=== PATIENT | male | born 1955 | race Hispanic/Latino ===

== ENCOUNTER 2022-04-08 12:33 | Emergency (ER) | payer OTHER ==
[~2022-04-08] VITALS: Ht 167.6 cm; Wt 76.2 kg
[~2022-04-08 12:33] MED LIST: IBUP-2077 PO; LISI1TAB53 PO
[2022-04-08 12:43] VITALS: BP 167/110
== END 2022-04-08 15:08 | disposition left against medical advice (07) ==
LOC: EDH 12:33
DX: M25.512 Pain in left shoulder (principal); Z53.21 Procedure and treatment not carried out due to patient leaving prior to being seen by health care provider
CPT/HCPCS: 73030

== ENCOUNTER 2022-09-03 18:03 | Emergency (ER) | payer OTHER ==
[~2022-09-03] VITALS: Ht 167.6 cm; Wt 76.2 kg
[2022-09-03 18:34] VITALS: BP 105/73
[2022-09-03] MEDS ORDERED: LACTATED RINGERS 1000ML 1,000 ML IV ONE (19:00)
[2022-09-03] MEDS ORDERED: PANTOPRAZOLE 40 MG/VIAL IVP ONE (19:00)
[2022-09-03 19:17] LABS: BASOPHILS % (AUTO) 0.3 % (0.0-5.0); EOSINOPHILS % (AUTO) 0.9 % (0.0-8.0); HEMATOCRIT 43.3 % (42-54); LYMPHOCYTES % (AUTO) 10.1 % (21.0-51.0); MEAN CORPUSCULAR HEMOGLOBIN 30.8 pg (27.0-33.0); MEAN CORPUSCULAR HGB CONC 34.2 g/dL (32.0-36.0); MONOCYTES % (AUTO) 4.5 % (3.0-13.0); NEUTROPHILS % (AUTO) 83.7 % (40.0-77.0); PLATELET COUNT (AUTO) 245 K/uL (130-400); RED BLOOD CELL COUNT(AUTO) 4.81 MIL/uL (4.50-6.20); RED CELL DISTRIBUTION WIDTH 12.9 % (11.0-15.5); WHITE BLOOD COUNT (AUTO) 7.6 K/uL (4.8-10.8)
[2022-09-03 19:25] LABS: CREATININE 1.4 mg/dL (0.5-1.5); POTASSIUM 4.1 mmol/L (3.5-5.1)
[2022-09-03 19:29] LABS: ALBUMIN 4.3 g/dL (3.5-5.0); TOTAL PROTEIN, SERUM 8.6 g/dL (6.0-8.3)
[2022-09-03 20:01] LABS: APPEARANCE,URINE CLEAR (CLEAR); BILIRUBIN,URINE NEGATIVE (NEGATIVE); COLOR,URINE LIGHT-YELLOW (YELLOW); GLUCOSE, URINE (UA) NEGATIVE (NEGATIVE); KETONES,URINE NEGATIVE (NEGATIVE); LEUKOCYTE ESTERASE ,URINE NEGATIVE Leu/uL (NEGATIVE); NITRATE,URINE NEGATIVE (NEGATIVE); OCCULT BLOOD,URINE NEGATIVE (NEGATIVE); PROTEIN,URINE NEGATIVE (NEGATIVE); UROBILINOGEN,URINE 0.2 mg/dL (0.2-1.0)
[2022-09-03 20:05] LABS: BACTERIA,URINE FEW /HPF (None Seen); MUCUS,URINE RARE LPF (None Seen); RBC,URINE 0-1 /HPF (0-1)
[2022-09-03] MEDS ORDERED: FAMO-136 PO (20:47)
[2022-09-03] MEDS ORDERED: ONDA22I PO (20:47)
== END 2022-09-03 21:18 | disposition home or self-care (01) ==
LOC: EDH 18:03
DX: K21.9 Gastro-esophageal reflux disease without esophagitis (principal); R19.7 Diarrhea, unspecified; R11.10 Vomiting, unspecified; I10 Essential (primary) hypertension; Z79.899 Other long term (current) drug therapy; Z85.038 Personal history of other malignant neoplasm of large intestine
CPT/HCPCS: 99284; 96374; 96361; 82150; 82550; 84484; 80053; 83690; 85025; 81001; 36415; 93005; J7120; C9113

== ENCOUNTER 2022-10-03 21:54 | Inpatient (IN) | payer OTHER ==
[~2022-10-03] VITALS: Ht 165.1 cm; Wt 71.8 kg
[~2022-10-03 21:54] MED LIST changes: +ALTEPLASE 100 MG VIAL IVP ONE; +FAMO-136 PO; +HEPARIN 10,000 UNIT/10ML (1,000 UNIT/ML) VIAL IV ONE; +ONDA22I PO
[2022-10-03] MEDS ORDERED: NITROGLYCERIN 50MG/D5W 250ML 1 BOT ONE (22:04)
[2022-10-03] MEDS ORDERED: CLOPIDOGREL 300MG TAB ONE (22:21)
[2022-10-03] MEDS ORDERED: NITROGLYCERIN 50MG/D5W 250ML 1 BOT IV PRN (22:30)
[2022-10-03 22:35] LABS: BASOPHILS % (AUTO) 0.6 % (0.0-5.0); EOSINOPHILS % (AUTO) 3.3 % (0.0-8.0); HEMATOCRIT 35.7 % (42-54); LYMPHOCYTES % (AUTO) 41.5 % (21.0-51.0); MEAN CORPUSCULAR HGB CONC 34.7 g/dL (32.0-36.0); MEAN CORPUSCULAR VOLUME 89.3 fL (79-99); MONOCYTES % (AUTO) 10.8 % (3.0-13.0); NEUTROPHILS % (AUTO) 43.1 % (40.0-77.0); PLATELET COUNT (AUTO) 235 K/uL (130-400); RED CELL DISTRIBUTION WIDTH 12.9 % (11.0-15.5); WHITE BLOOD COUNT (AUTO) 6.7 K/uL (4.8-10.8)
[2022-10-03 22:45] LABS: CREATININE 1.4 mg/dL (0.5-1.5); POTASSIUM 3.3 mmol/L (3.5-5.1)
[2022-10-03 22:47] LABS: INR 0.93 (0.85-1.15); PROTHROMBIN TIME 10.7 SEC (9.6-11.6)
[2022-10-03 22:48] LABS: PARTIAL THROMBOPLASTIN TIME 24.9 SEC (26.3-35.5)
[2022-10-03 22:49] LABS: ALBUMIN 3.6 g/dL (3.5-5.0); MAGNESIUM 1.7 mg/dL (1.80-2.40)
[2022-10-03] MEDS ORDERED: CLOPIDOGREL 300MG TAB PO ONE (23:00)
[2022-10-03] MEDS ORDERED: ALTEPLASE 100MG 1 VIAL IV PRN (23:00)
[2022-10-03 23:05] LABS: B-TYPE NATRIURETIC PEPTIDE 22 pg/mL (0-100)
[2022-10-03] MEDS ORDERED: ONDANSETRON 4MG INJ IVP PRN (23:30)
[2022-10-03] MEDS ORDERED: ACETAMINOPHEN 325 MG TAB PO PRN (23:30)
[2022-10-04] VITALS (75 sets, daily range): BP systolic 111–151; BP diastolic 64–98; PULSE 56–91; RESP 13–47; O2SAT 97–100
[2022-10-04] MEDS ORDERED: HEPARIN 25,000 UNITS/250ML D5W 250 ML IV SCH (01:00)
[2022-10-04] MEDS ORDERED: THIAMINE HCL 100 MG/ML 2ML VIAL IVP ONE (03:30)
[2022-10-04] MEDS ORDERED: CHLORDIAZEPOXIDE HCL 25 MG CAP PO PRN (03:30)
[2022-10-04 04:14] LABS: BASOPHILS % (AUTO) 0.7 % (0.0-5.0); EOSINOPHILS % (AUTO) 2.8 % (0.0-8.0); HEMATOCRIT 35.5 % (42-54); LYMPHOCYTES % (AUTO) 24.2 % (21.0-51.0); MEAN CORPUSCULAR HEMOGLOBIN 30.9 pg (27.0-33.0); MEAN CORPUSCULAR HGB CONC 34.4 g/dL (32.0-36.0); MEAN CORPUSCULAR VOLUME 89.9 fL (79-99); MONOCYTES % (AUTO) 11.8 % (3.0-13.0); NEUTROPHILS % (AUTO) 59.6 % (40.0-77.0); PLATELET COUNT (AUTO) 206 K/uL (130-400); RED BLOOD CELL COUNT(AUTO) 3.95 MIL/uL (4.50-6.20); RED CELL DISTRIBUTION WIDTH 13.1 % (11.0-15.5); WHITE BLOOD COUNT (AUTO) 5.8 K/uL (4.8-10.8)
[2022-10-04 04:37] LABS: MAGNESIUM 1.7 mg/dL (1.80-2.40); POTASSIUM 3.3 mmol/L (3.5-5.1)
[2022-10-04 04:42] LABS: HEMOGLOBIN A1C 5.7 % (4.0-6.0)
[2022-10-04] MEDS ORDERED: POTASSIUM CHLORIDE 10MEQ/100ML 100 ML IV PRN (07:00)
[2022-10-04] MEDS: ASPIRIN 81 MG EC TAB PO SCH (10:01)
[2022-10-04] MEDS: MULTIVITS,STRESS FORMULA/ZINC 1 TABLET PO SCH (10:33)
[2022-10-04] MEDS ORDERED: THIAMINE HCL 300 MG in 0.9%NACL 100ML 100 ML IVPB ONE (11:30)
[2022-10-04 14:31] LABS: BASOPHILS % (AUTO) 0.6 % (0.0-5.0); EOSINOPHILS % (AUTO) 2.8 % (0.0-8.0); HEMATOCRIT 36.2 % (42-54); MEAN CORPUSCULAR HEMOGLOBIN 31.1 pg (27.0-33.0); MEAN CORPUSCULAR HGB CONC 34.3 g/dL (32.0-36.0); MEAN CORPUSCULAR VOLUME 90.7 fL (79-99); PLATELET COUNT (AUTO) 198 K/uL (130-400); RED BLOOD CELL COUNT(AUTO) 3.99 MIL/uL (4.50-6.20); RED CELL DISTRIBUTION WIDTH 13.1 % (11.0-15.5); WHITE BLOOD COUNT (AUTO) 5.1 K/uL (4.8-10.8)
[2022-10-04 14:45] LABS: INR 1.45 (0.85-1.15); PROTHROMBIN TIME 16.4 SEC (9.6-11.6)
[2022-10-04] MEDS ORDERED: PEG 3350/NA SULF,BICARB,CL/KCL 4000 ML SOLN PO ONE (20:00)
[2022-10-04 21:31] LABS: HEMATOCRIT 38.7 % (42-54)
[2022-10-05] VITALS (17 sets, daily range): BP systolic 99–148; BP diastolic 60–95; PULSE 54–114; RESP 15–51; O2SAT 97
[2022-10-05 05:42] LABS: HEMATOCRIT 34.8 % (42-54)
[2022-10-05] MEDS ORDERED: PROPOFOL 10 MG/ML 20ML VIAL IV ONE (06:59)
[2022-10-05] MEDS ORDERED: LIDOCAINE PF 100MG/5ML (2%) SYRINGE 5ML ONE (07:00)
[2022-10-05] MEDS ORDERED: MIDAZOLAM HCL 1 MG/ML 2ML VIAL ONE (07:00)
[2022-10-05] MEDS ORDERED: EPHEDRINE SULFATE 50 MG/ML AMPULE ONE (07:10)
[2022-10-05] MEDS ORDERED: 0.9%NACL 1000ML 1,000 ML IV ONE (07:49)
[2022-10-05 08:06] LABS: POTASSIUM 3.2 mmol/L (3.5-5.1)
[2022-10-05 08:41] LABS: HEMATOCRIT 34.7 % (42-54); MEAN CORPUSCULAR HEMOGLOBIN 31.1 pg (27.0-33.0); MEAN CORPUSCULAR HGB CONC 33.7 g/dL (32.0-36.0); MEAN CORPUSCULAR VOLUME 92.3 fL (79-99); RED BLOOD CELL COUNT(AUTO) 3.76 MIL/uL (4.50-6.20); WHITE BLOOD COUNT (AUTO) 4.8 K/uL (4.8-10.8)
[2022-10-05] MEDS: THIAMINE HCL 100 MG TABLET PO SCH (10:09)
[2022-10-05] MEDS: ASPIRIN 81 MG EC TAB PO SCH (10:09)
[2022-10-05] MEDS: MULTIVITS,STRESS FORMULA/ZINC 1 TABLET PO SCH (10:09)
[2022-10-05] MEDS ORDERED: METOPROLOL TARTRATE 25 MG TAB ONE (10:10)
[2022-10-05] MEDS: METOPROLOL TARTRATE 25 MG TAB PO SCH ×2 (10:14→20:03)
[2022-10-05] MEDS ORDERED: POTASSIUM CHLORIDE 20MEQ/100ML 100 ML IV PRN (10:30)
[2022-10-05] MEDS ORDERED: POTASSIUM CHLORIDE 10% ELIXIR 20 MEQ/15 ML UDCUP PO PRN (10:30)
[2022-10-05] MEDS: KCL 20 MEQ ERTAB PO PRN ×2 (11:56→13:56)
[2022-10-05 16:10] LABS: HEMATOCRIT 34.2 % (42-54)
[2022-10-06] VITALS: BP 140/79; PULSE 59; RESP 21
[2022-10-06 03:45] VITALS: BP 148/83; PULSE 64; RESP 20
[2022-10-06 08:00] VITALS: BP 131/82; PULSE 67; RESP 16
[2022-10-06] MEDS: ASPIRIN 81 MG EC TAB PO SCH (09:16)
[2022-10-06] MEDS: METOPROLOL TARTRATE 25 MG TAB PO SCH ×2 (09:16→20:15)
[2022-10-06] MEDS: MULTIVITS,STRESS FORMULA/ZINC 1 TABLET PO SCH (09:16)
[2022-10-06] MEDS: THIAMINE HCL 100 MG TABLET PO SCH (09:16)
[2022-10-06] MEDS: CLOPIDOGREL 75MG TAB PO SCH (09:17)
[2022-10-06 12:00] VITALS: BP 107/75; PULSE 67; RESP 16
[2022-10-06 12:51] LABS: APPEARANCE,URINE CLEAR (CLEAR); BILIRUBIN,URINE NEGATIVE (NEGATIVE); COLOR,URINE YELLOW (YELLOW); GLUCOSE, URINE (UA) NEGATIVE (NEGATIVE); KETONES,URINE NEGATIVE (NEGATIVE); LEUKOCYTE ESTERASE ,URINE NEGATIVE Leu/uL (NEGATIVE); NITRATE,URINE NEGATIVE (NEGATIVE); OCCULT BLOOD,URINE NEGATIVE (NEGATIVE); PROTEIN,URINE NEGATIVE (NEGATIVE)
[2022-10-06 16:00] VITALS: BP_SYST 107; BP_SYST 136; BP_DIAS 75; PULSE 65; PULSE 67; RESP 16
[2022-10-06 20:00] VITALS: BP 161/88; PULSE 64; RESP 16
[2022-10-06] MEDS: ATORVASTATIN 40 MG TABLET PO SCH (20:15)
[2022-10-07] VITALS (16 sets, daily range): BP systolic 118–169; BP diastolic 67–98; PULSE 50–88; RESP 16–19; O2SAT 100
[2022-10-07 03:33] LABS: HEMATOCRIT 32.2 % (42-54); MEAN CORPUSCULAR HEMOGLOBIN 30.9 pg (27.0-33.0); MEAN CORPUSCULAR HGB CONC 34.2 g/dL (32.0-36.0); MEAN CORPUSCULAR VOLUME 90.4 fL (79-99); RED BLOOD CELL COUNT(AUTO) 3.56 MIL/uL (4.50-6.20); RED CELL DISTRIBUTION WIDTH 12.3 % (11.0-15.5); WHITE BLOOD COUNT (AUTO) 4.8 K/uL (4.8-10.8)
[2022-10-07 03:42] LABS: CREATININE 0.9 mg/dL (0.5-1.5); MAGNESIUM 1.6 mg/dL (1.80-2.40); POTASSIUM 3.2 mmol/L (3.5-5.1)
[2022-10-07 03:47] LABS: INR 0.94 (0.85-1.15); PROTHROMBIN TIME 10.9 SEC (9.6-11.6)
[2022-10-07 03:48] LABS: PARTIAL THROMBOPLASTIN TIME 25.9 SEC (26.3-35.5)
[2022-10-07] MEDS ORDERED: 0.9% NACL 500ML IV.SOLN 500 ML IV SCH (05:00)
[2022-10-07] MEDS: CLOPIDOGREL 75MG TAB PO SCH (08:48)
[2022-10-07] MEDS: MULTIVITS,STRESS FORMULA/ZINC 1 TABLET PO SCH (08:48)
[2022-10-07] MEDS: ASPIRIN 81 MG EC TAB PO SCH (08:48)
[2022-10-07] MEDS: THIAMINE HCL 100 MG TABLET PO SCH (08:48)
[2022-10-07] MEDS: METOPROLOL TARTRATE 25 MG TAB PO SCH ×2 (08:49→21:54)
[2022-10-07] MEDS: MAGNESIUM 2GM PREMIX 50ML 50 ML IV SCH (08:49)
[2022-10-07] MEDS ORDERED: FENTANYL CITRATE PF 50 MCG/1 ML 2ML VIAL ONE (13:08)
[2022-10-07] MEDS ORDERED: LIDOCAINE HCL 400MG/20ML VIAL ONE (13:08)
[2022-10-07] MEDS ORDERED: HEPARIN 10,000 UNIT/10ML (1,000 UNIT/ML) VIAL ONE (13:09)
[2022-10-07] MEDS ORDERED: IOHEXOL-350 50ML VIAL IV ONE (13:09)
[2022-10-07] MEDS ORDERED: NITROGLYCERIN 50MG VIAL ONE (13:09)
[2022-10-07] MEDS ORDERED: MIDAZOLAM HCL 1 MG/ML 2ML VIAL ONE (13:09)
[2022-10-07] MEDS ORDERED: IOHEXOL-350 75 ML VIAL IV ONE (13:09)
[2022-10-07] MEDS ORDERED: NICARDIPINE 25MG INJ IV ONE (13:39)
[2022-10-07] MEDS ORDERED: DEXTROSE 50%-WATER 50 ML DISP.SYRIN IV PRN (15:00)
[2022-10-07] MEDS ORDERED: GLUCAGON 1MG KIT 1 MG ML IM PRN (15:00)
[2022-10-07] MEDS: ATORVASTATIN 40 MG TABLET PO SCH (21:54)
[2022-10-07] MEDS: KCL 20 MEQ ERTAB PO PRN (22:01)
[2022-10-08 03:45] LABS: ABG BASE EXCESS -0.1 mmol/L (-2.0-3.0); ABG HCO3 23.9 mmol/L (21.0-28.0); ABG OXYGEN SATURATION 95.7 % (95.0-99.0); ABG PCO2 37 mmHg (35-48)
[2022-10-08 05:00] VITALS: BP 146/77; PULSE 55; RESP 19
[2022-10-08 05:49] LABS: HEMATOCRIT 33.1 % (42-54); MEAN CORPUSCULAR HEMOGLOBIN 30.9 pg (27.0-33.0); MEAN CORPUSCULAR HGB CONC 34.4 g/dL (32.0-36.0); MEAN CORPUSCULAR VOLUME 89.7 fL (79-99); RED BLOOD CELL COUNT(AUTO) 3.69 MIL/uL (4.50-6.20); RED CELL DISTRIBUTION WIDTH 12.5 % (11.0-15.5); WHITE BLOOD COUNT (AUTO) 4.1 K/uL (4.8-10.8)
[2022-10-08 06:10] LABS: POTASSIUM 3.8 mmol/L (3.5-5.1)
[2022-10-08 08:00] VITALS: BP_SYST 129; BP_SYST 146; BP_DIAS 73; BP_DIAS 74; PULSE 52; PULSE 73; RESP 17; RESP 18; O2SAT 97
[2022-10-08] MEDS: MULTIVITS,STRESS FORMULA/ZINC 1 TABLET PO SCH (08:08)
[2022-10-08] MEDS: ASPIRIN 81 MG EC TAB PO SCH (08:09)
[2022-10-08] MEDS: THIAMINE HCL 100 MG TABLET PO SCH (08:09)
[2022-10-08] MEDS: CLOPIDOGREL 75MG TAB PO SCH (08:09)
[2022-10-08] MEDS: METOPROLOL TARTRATE 25 MG TAB PO SCH ×2 (08:09→20:59)
[2022-10-08 16:00] VITALS: BP 166/98; PULSE 60; RESP 16
[2022-10-08 19:00] VITALS: BP 156/86; PULSE 63; RESP 16
[2022-10-08 20:00] VITALS: O2SAT 96
[2022-10-08] MEDS: ATORVASTATIN 40 MG TABLET PO SCH (20:59)
[2022-10-08 23:00] VITALS: BP 140/90; PULSE 58; RESP 14
[2022-10-09 05:00] VITALS: BP 158/98; PULSE 60; RESP 17
[2022-10-09 08:00] VITALS: BP 134/80; PULSE 74; RESP 20; O2SAT 97
[2022-10-09] MEDS: THIAMINE HCL 100 MG TABLET PO SCH (08:57)
[2022-10-09] MEDS: MULTIVITS,STRESS FORMULA/ZINC 1 TABLET PO SCH (08:57)
[2022-10-09] MEDS: METOPROLOL TARTRATE 25 MG TAB PO SCH ×2 (08:58→19:11)
[2022-10-09] MEDS: ASPIRIN 81 MG EC TAB PO SCH (08:58)
[2022-10-09 11:59] VITALS: BP 149/75; PULSE 57; RESP 20
[2022-10-09 16:00] VITALS: BP 143/83; PULSE 70; RESP 20
[2022-10-09] MEDS: ATORVASTATIN 40 MG TABLET PO SCH (19:11)
[2022-10-09 20:00] VITALS: BP 121/76; PULSE 68; RESP 18; O2SAT 97
[2022-10-10] VITALS (8 sets, daily range): BP systolic 108–142; BP diastolic 76–86; PULSE 55–72; RESP 18–20; O2SAT 97–98
[2022-10-10 08:11] LABS: HEMATOCRIT 37.4 % (42-54); MEAN CORPUSCULAR HEMOGLOBIN 30.9 pg (27.0-33.0); MEAN CORPUSCULAR HGB CONC 34.2 g/dL (32.0-36.0); MEAN CORPUSCULAR VOLUME 90.3 fL (79-99); RED BLOOD CELL COUNT(AUTO) 4.14 MIL/uL (4.50-6.20); RED CELL DISTRIBUTION WIDTH 12.6 % (11.0-15.5); WHITE BLOOD COUNT (AUTO) 4.2 K/uL (4.8-10.8)
[2022-10-10 08:25] LABS: CREATININE 1.1 mg/dL (0.5-1.5); MAGNESIUM 1.8 mg/dL (1.80-2.40); POTASSIUM 3.5 mmol/L (3.5-5.1)
[2022-10-10] MEDS: MULTIVITS,STRESS FORMULA/ZINC 1 TABLET PO SCH (09:00)
[2022-10-10] MEDS: THIAMINE HCL 100 MG TABLET PO SCH (09:00)
[2022-10-10] MEDS: ASPIRIN 81 MG EC TAB PO SCH (09:00)
[2022-10-10] MEDS: METOPROLOL TARTRATE 25 MG TAB PO SCH ×2 (09:00→19:39)
[2022-10-10] MEDS: MAGNESIUM 2GM PREMIX 50ML 50 ML IV SCH (15:47)
[2022-10-10] MEDS: ATORVASTATIN 40 MG TABLET PO SCH (19:39)
[2022-10-11] VITALS (7 sets, daily range): BP systolic 135–154; BP diastolic 81–89; PULSE 58–82; RESP 18–20; O2SAT 96–97
[2022-10-11] MEDS: ASPIRIN 81 MG EC TAB PO SCH (08:25)
[2022-10-11] MEDS: METOPROLOL TARTRATE 25 MG TAB PO SCH ×2 (08:26→20:40)
[2022-10-11] MEDS: MULTIVITS,STRESS FORMULA/ZINC 1 TABLET PO SCH (08:26)
[2022-10-11] MEDS: THIAMINE HCL 100 MG TABLET PO SCH (08:26)
[2022-10-11] MEDS: CEFAZOLIN SODIUM 2 GM VIAL IVPB SCH (11:00)
[2022-10-11] MEDS ORDERED: HEPARIN 25,000 UNITS/250ML D5W 250 ML IV SCH (12:00)
[2022-10-11] MEDS ORDERED: HEPARIN 5,000 UNIT VIAL ONE (12:41)
[2022-10-11] MEDS: ATORVASTATIN 40 MG TABLET PO SCH (20:39)
[2022-10-12] VITALS (37 sets, daily range): BP systolic 103–174; BP diastolic 55–93; PULSE 54–91; RESP 8–26; TEMP 97.5–99.4; O2SAT 97–100
[2022-10-12 06:14] LABS: MEAN CORPUSCULAR HEMOGLOBIN 30.5 pg (27.0-33.0); MEAN CORPUSCULAR HGB CONC 33.9 g/dL (32.0-36.0); RED CELL DISTRIBUTION WIDTH 12.2 % (11.0-15.5); WHITE BLOOD COUNT (AUTO) 4.7 K/uL (4.8-10.8)
[2022-10-12 06:24] LABS: INR 0.94 (0.85-1.15); PROTHROMBIN TIME 10.9 SEC (9.6-11.6)
[2022-10-12 06:25] LABS: ALBUMIN 3.7 g/dL (3.5-5.0); CREATININE 1.1 mg/dL (0.5-1.5); PARTIAL THROMBOPLASTIN TIME 25.6 SEC (26.3-35.5); POTASSIUM 3.5 mmol/L (3.5-5.1); TOTAL PROTEIN, SERUM 7.3 g/dL (6.0-8.3)
[2022-10-12] MEDS: ASPIRIN 81 MG EC TAB PO SCH (08:09)
[2022-10-12] MEDS: MULTIVITS,STRESS FORMULA/ZINC 1 TABLET PO SCH (08:09)
[2022-10-12] MEDS: METOPROLOL TARTRATE 25 MG TAB PO SCH (08:09)
[2022-10-12] MEDS: THIAMINE HCL 100 MG TABLET PO SCH (08:09)
[2022-10-12] MEDS ORDERED: LACTULOSE 20 GM/30 ML UDCUP PO PRN (09:00)
[2022-10-12] MEDS ORDERED: ACETAMINOPHEN 325 MG TAB PO PRN (09:00)
[2022-10-12] MEDS ORDERED: PROPOFOL 1000 MG/100 ML 100 ML IV PRN (09:00)
[2022-10-12] MEDS ORDERED: MORPHINE 4 MG SYG IV PRN (09:00)
[2022-10-12] MEDS ORDERED: GLUCAGON 1MG KIT 1 MG ML IM PRN (09:00)
[2022-10-12] MEDS ORDERED: 0.9% NACL 500ML IV.SOLN 500 ML IV SCH (09:00)
[2022-10-12] MEDS ORDERED: 0.9%NACL 10ML VIAL IVP PRN (09:00)
[2022-10-12] MEDS ORDERED: ACETAMINOPHEN 650 MG SUPPOSITORY RC PRN (09:00)
[2022-10-12] MEDS ORDERED: AMINOCAPROIC ACID 5,000MG VIAL 15,000 MG in 0.9% NACL 500ML IV.SOLN 420 ML IV PRN (09:00)
[2022-10-12] MEDS ORDERED: DEXTROSE 50%-WATER 50 ML DISP.SYRIN IV PRN (09:00)
[2022-10-12] MEDS ORDERED: NITROGLYCERIN 50MG/D5W 250ML 250 BOT IV SCH (09:00)
[2022-10-12] MEDS ORDERED: EPINEPHRINE PF 1MG (1:1,000) 10 MG in 0.9% NACL 250ML 240 ML IV PRN ×4 (09:00)
[2022-10-12] MEDS ORDERED: POTASSIUM PHOS 15 mMOL+NS250ML 250 ML IV PRN (09:00)
[2022-10-12] MEDS ORDERED: FAMOTIDINE 20MG VIAL IV SCH (09:00)
[2022-10-12] MEDS ORDERED: ONDANSETRON 4MG INJ IV PRN (09:00)
[2022-10-12] MEDS ORDERED: 0.9%NACL 1000ML 1,000 ML IV SCH (09:00)
[2022-10-12] MEDS ORDERED: INSULIN REGULAR, HUMAN 3ML 100 UNIT in 0.9%NACL 100ML 99 ML IV SCH ×2 (09:00)
[2022-10-12] MEDS ORDERED: AMINOCAPROIC ACID 5,000MG VIAL 15,000 MG in 0.9% NACL 250ML 250 ML IV SCH (09:00)
[2022-10-12] MEDS ORDERED: TRAMADOL HCL 50 MG TABLET PO PRN (09:00)
[2022-10-12] MEDS ORDERED: MAGNESIUM HYDROXIDE 30 ML/UDCUP PO PRN (09:00)
[2022-10-12] MEDS ORDERED: NOREPINEPHRIN 4MG/NS 250ML 250 ML IV PRN (09:00)
[2022-10-12] MEDS ORDERED: NOREPINEPHRINE BITARTRATE 8 MG in 0.9% NACL 250ML 250 ML IV PRN (09:00)
[2022-10-12] MEDS ORDERED: MORPHINE 2 MG SYG IV PRN (09:00)
[2022-10-12] MEDS ORDERED: ALBUMIN (HUMAN) 5% 250 ML IV PRN (09:00)
[2022-10-12] MEDS ORDERED: CEFAZOLIN SODIUM 1 GM VIAL ONE ×2 (10:16→13:02)
[2022-10-12] MEDS ORDERED: PAPAVERINE HCL 30 MG/ML 2ML VIAL ONE (10:17)
[2022-10-12] MEDS: CEFAZOLIN SODIUM 2 GM VIAL IVPB SCH ×2 (11:00→12:00)
[2022-10-12] MEDS ORDERED: ESMOLOL HCL 10 MG/ML 10 ML VIAL ONE (11:41)
[2022-10-12] MEDS ORDERED: MIDAZOLAM HCL 1 MG/ML 2ML VIAL ONE (11:42)
[2022-10-12] MEDS ORDERED: AMINOCAPROIC ACID 5,000MG VIAL ONE (11:42)
[2022-10-12] MEDS ORDERED: NOREPINEPHRINE BITARTRATE 1 MG/1 ML ML IV ONE (11:42)
[2022-10-12] MEDS ORDERED: FENTANYL CITRATE PF 50 MCG/1 ML 20ML VIAL IJ ONE (11:42)
[2022-10-12] MEDS ORDERED: LIDOCAINE PF 100MG/5ML (2%) SYRINGE 5ML ONE (11:42)
[2022-10-12] MEDS ORDERED: SODIUM BICARB 50MEQ 50ML VIAL 150 ML ONE (11:42)
[2022-10-12] MEDS ORDERED: EPINEPHRINE PF 1MG (1:1,000) 1 MG/ML AMP ONE (11:42)
[2022-10-12] MEDS ORDERED: HEPARIN 10,000 UNIT/10ML (1,000 UNIT/ML) VIAL ONE (11:42)
[2022-10-12] MEDS ORDERED: PROPOFOL 10 MG/ML 20ML VIAL IV ONE (11:42)
[2022-10-12] MEDS ORDERED: ROCURONIUM 10MG/1ML SYR 10 MG/ML ML ONE (11:43)
[2022-10-12] MEDS ORDERED: KETAMINE 50MG/ML SYRINGE 50 MG/ML DISP.SYRIN ONE ×2 (11:43→13:58)
[2022-10-12] MEDS ORDERED: ASPIRIN 81MG CHEW TAB NG ONE (12:00)
[2022-10-12] MEDS ORDERED: AMIODARONE 150MG VIAL ONE (14:16)
[2022-10-12] MEDS ORDERED: LIDOCAINE 2G/250ML 250 ML IV ONE (14:18)
[2022-10-12] MEDS ORDERED: LIDOCAINE 2G/250ML 250 ML IV PRN (14:30)
[2022-10-12] MEDS ORDERED: SODIUM BICARB 50MEQ 50ML VIAL 300 ML ONE (15:14)
[2022-10-12] MEDS ORDERED: PROTAMINE SULFATE 10 MG/ML 5 ML VIAL ONE (15:14)
[2022-10-12 15:46] LABS: ABG BASE EXCESS -1.7 mmol/L (-2.0-3.0); ABG HCO3 24.1 mmol/L (21.0-28.0); ABG OXYGEN SATURATION 99.1 % (95.0-99.0); ABG PCO2 45 mmHg (35-48)
[2022-10-12 15:53] LABS: HEMATOCRIT 32.1 % (42-54); MEAN CORPUSCULAR HEMOGLOBIN 31.1 pg (27.0-33.0); MEAN CORPUSCULAR VOLUME 91.5 fL (79-99); RED BLOOD CELL COUNT(AUTO) 3.51 MIL/uL (4.50-6.20); RED CELL DISTRIBUTION WIDTH 12.4 % (11.0-15.5); WHITE BLOOD COUNT (AUTO) 14.9 K/uL (4.8-10.8)
[2022-10-12 16:04] LABS: INR 1.08 (0.85-1.15); PROTHROMBIN TIME 12.5 SEC (9.6-11.6)
[2022-10-12 16:05] LABS: PARTIAL THROMBOPLASTIN TIME 22.9 SEC (26.3-35.5)
[2022-10-12 16:10] LABS: CREATININE 1.1 mg/dL (0.5-1.5); MAGNESIUM 1.4 mg/dL (1.80-2.40); PHOSPHORUS 5.3 mg/dL (2.5-4.9)
[2022-10-12] MEDS: POTASSIUM CHLORIDE 20MEQ/100ML 100 ML IV PRN ×3 (16:31→20:34)
[2022-10-12] MEDS: MAGNESIUM 2GM PREMIX 50ML 50 ML IV PRN (16:33)
[2022-10-12] MEDS: CEFAZOLIN SODIUM 1 GM VIAL IVPB SCH ×2 (16:42→22:18)
[2022-10-12] MEDS: TRAMADOL HCL 50 MG TABLET PO PRN (16:50)
[2022-10-12 17:01] LABS: ABG BASE EXCESS -4.5 mmol/L (-2.0-3.0); ABG HCO3 21.4 mmol/L (21.0-28.0); ABG OXYGEN SATURATION 99.2 % (95.0-99.0); ABG PCO2 43 mmHg (35-48)
[2022-10-12] MEDS: SODIUM BICARB 50MEQ 50ML VIAL IV PRN ×3 (17:31→20:34)
[2022-10-12 18:30] LABS: ABG BASE EXCESS -3.8 mmol/L (-2.0-3.0); ABG HCO3 21.4 mmol/L (21.0-28.0); ABG OXYGEN SATURATION 98.5 % (95.0-99.0); ABG PCO2 39 mmHg (35-48)
[2022-10-12 20:29] LABS: ABG BASE EXCESS -3.2 mmol/L (-2.0-3.0); ABG HCO3 22.1 mmol/L (21.0-28.0); ABG OXYGEN SATURATION 98.2 % (95.0-99.0); ABG PCO2 41 mmHg (35-48)
[2022-10-12] MEDS: CALCIUM GLUC 1GM 1 GM in 0.9%NACL 50ML 50 ML IV PRN (20:34)
[2022-10-12] MEDS: DOCUSATE SODIUM 100 MG CAP PO SCH (20:34)
[2022-10-12] MEDS: ATORVASTATIN 40 MG TABLET PO SCH (20:34)
[2022-10-12] MEDS: PANTOPRAZOLE 40 MG/VIAL IVP SCH (20:34)
[2022-10-12 22:01] LABS: ABG BASE EXCESS 1.1 mmol/L (-2.0-3.0); ABG HCO3 25.8 mmol/L (21.0-28.0); ABG OXYGEN SATURATION 98.2 % (95.0-99.0); ABG PCO2 42 mmHg (35-48)
[2022-10-13] VITALS (82 sets, daily range): BP systolic 85–156; BP diastolic 39–101; PULSE 78–98; RESP 6–30; TEMP 99–99.7; O2SAT 95–99
[2022-10-13] MEDS: TRAMADOL HCL 50 MG TABLET PO PRN
[2022-10-13] MEDS: IPRATROPIUM 0.5 MG/2.5 ML INH IH SCH ×4 (00:38→19:00)
[2022-10-13 05:02] LABS: HEMATOCRIT 29.3 % (42-54); MEAN CORPUSCULAR HEMOGLOBIN 30.8 pg (27.0-33.0); MEAN CORPUSCULAR HGB CONC 33.1 g/dL (32.0-36.0); RED BLOOD CELL COUNT(AUTO) 3.15 MIL/uL (4.50-6.20); RED CELL DISTRIBUTION WIDTH 12.9 % (11.0-15.5); WHITE BLOOD COUNT (AUTO) 6.1 K/uL (4.8-10.8)
[2022-10-13 05:51] LABS: CREATININE 0.9 mg/dL (0.5-1.5); MAGNESIUM 1.5 mg/dL (1.80-2.40); PHOSPHORUS 5.1 mg/dL (2.5-4.9); POTASSIUM 4.1 mmol/L (3.5-5.1)
[2022-10-13] MEDS: CEFAZOLIN SODIUM 1 GM VIAL IVPB SCH (06:13)
[2022-10-13] MEDS: MAGNESIUM 2GM PREMIX 50ML 50 ML IV PRN ×2 (06:14→15:45)
[2022-10-13] MEDS: ASPIRIN 81 MG EC TAB PO SCH (09:02)
[2022-10-13] MEDS: DOCUSATE SODIUM 100 MG CAP PO SCH ×2 (09:02→20:06)
[2022-10-13] MEDS: PANTOPRAZOLE 40 MG/VIAL IVP SCH ×2 (09:02→20:06)
[2022-10-13] MEDS: THIAMINE HCL 100 MG TABLET PO SCH (09:02)
[2022-10-13] MEDS: MULTIVITS,STRESS FORMULA/ZINC 1 TABLET PO SCH (09:09)
[2022-10-13] MEDS: CEFAZOLIN SODIUM 2 GM VIAL IVPB SCH (11:00)
[2022-10-13] MEDS ORDERED: FUROSEMIDE 20 MG TABLET PO ONE (13:00)
[2022-10-13 15:23] LABS: MAGNESIUM 1.8 mg/dL (1.80-2.40)
[2022-10-13] MEDS: POTASSIUM CHLORIDE 20MEQ/100ML 100 ML IV PRN (15:43)
[2022-10-13] MEDS: CALCIUM GLUC 1GM 1 GM in 0.9%NACL 50ML 50 ML IV PRN (15:44)
[2022-10-13] MEDS ORDERED: CALCIUM GLUC 1GM/10ML VIAL ONE (15:44)
[2022-10-13] MEDS: INSULIN HUMULIN R 100 UNIT/ML 3ML SQ SCH ×2 (16:30→20:21)
[2022-10-13] MEDS: ATORVASTATIN 40 MG TABLET PO SCH (20:06)
[2022-10-13] MEDS: FUROSEMIDE 20 MG TABLET PO SCH (20:06)
[2022-10-14] VITALS (46 sets, daily range): BP systolic 100–155; BP diastolic 59–98; PULSE 42–104; RESP 10–36; O2SAT 93–96
[2022-10-14] MEDS: IPRATROPIUM 0.5 MG/2.5 ML INH IH SCH ×5 (01:19→23:42)
[2022-10-14 06:15] LABS: BASOPHILS % (AUTO) 0.2 % (0.0-5.0); HEMATOCRIT 29.8 % (42-54); LYMPHOCYTES % (AUTO) 8.3 % (21.0-51.0); MEAN CORPUSCULAR HEMOGLOBIN 30.5 pg (27.0-33.0); MEAN CORPUSCULAR HGB CONC 32.9 g/dL (32.0-36.0); MEAN CORPUSCULAR VOLUME 92.8 fL (79-99); MONOCYTES % (AUTO) 8.3 % (3.0-13.0); NEUTROPHILS % (AUTO) 82.6 % (40.0-77.0); PLATELET COUNT (AUTO) 209 K/uL (130-400); RED BLOOD CELL COUNT(AUTO) 3.21 MIL/uL (4.50-6.20); RED CELL DISTRIBUTION WIDTH 12.7 % (11.0-15.5); WHITE BLOOD COUNT (AUTO) 9.2 K/uL (4.8-10.8)
[2022-10-14 06:44] LABS: CREATININE 0.9 mg/dL (0.5-1.5); POTASSIUM 3.7 mmol/L (3.5-5.1)
[2022-10-14] MEDS ORDERED: POTASSIUM CHLORIDE 10% ELIXIR 20 MEQ/15 ML UDCUP PO PRN (07:00)
[2022-10-14] MEDS: INSULIN HUMULIN R 100 UNIT/ML 3ML SQ SCH ×4 (07:30→21:00)
[2022-10-14] MEDS: PANTOPRAZOLE 40 MG/VIAL IVP SCH ×2 (09:12→21:29)
[2022-10-14] MEDS: ASPIRIN 81 MG EC TAB PO SCH (09:12)
[2022-10-14] MEDS: DOCUSATE SODIUM 100 MG CAP PO SCH ×2 (09:12→21:29)
[2022-10-14] MEDS: THIAMINE HCL 100 MG TABLET PO SCH (09:12)
[2022-10-14] MEDS: CEFAZOLIN SODIUM 2 GM VIAL IVPB SCH (09:12)
[2022-10-14] MEDS: MULTIVITS,STRESS FORMULA/ZINC 1 TABLET PO SCH (09:12)
[2022-10-14] MEDS: FUROSEMIDE 20 MG TABLET PO SCH ×2 (09:12→21:28)
[2022-10-14] MEDS: METOPROLOL SUCCINATE 25 MG TAB.SR.24H PO SCH (09:13)
[2022-10-14] MEDS: METOCLOPRAMIDE 10 MG/2 ML VIAL IVP SCH ×2 (15:06→21:29)
[2022-10-14] MEDS ORDERED: METOPROLOL TARTRATE 25 MG TAB PO SCH (21:00)
[2022-10-14] MEDS: ATORVASTATIN 40 MG TABLET PO SCH (21:28)
[2022-10-15] VITALS (10 sets, daily range): BP systolic 115–152; BP diastolic 72–94; PULSE 80–96; RESP 18; O2SAT 94–95
[2022-10-15 03:38] LABS: HEMATOCRIT 30.2 % (42-54); MEAN CORPUSCULAR HEMOGLOBIN 30.4 pg (27.0-33.0); MEAN CORPUSCULAR HGB CONC 33.4 g/dL (32.0-36.0); RED BLOOD CELL COUNT(AUTO) 3.32 MIL/uL (4.50-6.20); RED CELL DISTRIBUTION WIDTH 12.3 % (11.0-15.5); WHITE BLOOD COUNT (AUTO) 8.4 K/uL (4.8-10.8)
[2022-10-15 03:57] LABS: CREATININE 0.9 mg/dL (0.5-1.5); POTASSIUM 3.5 mmol/L (3.5-5.1)
[2022-10-15] MEDS: METOCLOPRAMIDE 10 MG/2 ML VIAL IVP SCH ×3 (05:29→22:34)
[2022-10-15] MEDS: IPRATROPIUM 0.5 MG/2.5 ML INH IH SCH ×4 (06:36→23:02)
[2022-10-15] MEDS: INSULIN HUMULIN R 100 UNIT/ML 3ML SQ SCH ×4 (07:27→21:00)
[2022-10-15] MEDS: CEFAZOLIN SODIUM 2 GM VIAL IVPB SCH (07:28)
[2022-10-15] MEDS: MULTIVITS,STRESS FORMULA/ZINC 1 TABLET PO SCH (07:52)
[2022-10-15] MEDS: ASPIRIN 81 MG EC TAB PO SCH (07:58)
[2022-10-15] MEDS: THIAMINE HCL 100 MG TABLET PO SCH (07:58)
[2022-10-15] MEDS: METOPROLOL SUCCINATE 25 MG TAB.SR.24H PO SCH (07:58)
[2022-10-15] MEDS: FUROSEMIDE 20 MG TABLET PO SCH ×2 (07:58→20:18)
[2022-10-15] MEDS: DOCUSATE SODIUM 100 MG CAP PO SCH ×2 (07:58→20:18)
[2022-10-15] MEDS: ENOXAPARIN SODIUM 30 MG/0.3 ML SQ SCH (07:58)
[2022-10-15] MEDS: PANTOPRAZOLE 40 MG/VIAL IVP SCH ×2 (07:58→20:18)
[2022-10-15] MEDS: BISACODYL 10 MG SUPP.RECT RC ONE ×2 (13:19→13:59)
[2022-10-15] MEDS: ATORVASTATIN 40 MG TABLET PO SCH (20:18)
[2022-10-16] VITALS (16 sets, daily range): BP systolic 120–153; BP diastolic 82–101; PULSE 84–95; RESP 18–20; O2SAT 95–98
[2022-10-16 03:47] LABS: HEMATOCRIT 28.3 % (42-54); MEAN CORPUSCULAR HEMOGLOBIN 30.3 pg (27.0-33.0); MEAN CORPUSCULAR HGB CONC 33.9 g/dL (32.0-36.0); MEAN CORPUSCULAR VOLUME 89.3 fL (79-99); RED BLOOD CELL COUNT(AUTO) 3.17 MIL/uL (4.50-6.20); WHITE BLOOD COUNT (AUTO) 5.4 K/uL (4.8-10.8)
[2022-10-16 03:59] LABS: CREATININE 0.8 mg/dL (0.5-1.5); POTASSIUM 3.2 mmol/L (3.5-5.1)
[2022-10-16] MEDS: KCL 20 MEQ ERTAB PO PRN ×3 (04:31→11:51)
[2022-10-16] MEDS: METOCLOPRAMIDE 10 MG/2 ML VIAL IVP SCH ×3 (06:30→21:45)
[2022-10-16] MEDS: INSULIN HUMULIN R 100 UNIT/ML 3ML SQ SCH ×3 (07:08→20:10)
[2022-10-16] MEDS: CEFAZOLIN SODIUM 2 GM VIAL IVPB SCH (07:11)
[2022-10-16] MEDS: IPRATROPIUM 0.5 MG/2.5 ML INH IH SCH ×4 (07:18→23:56)
[2022-10-16] MEDS: ENOXAPARIN SODIUM 30 MG/0.3 ML SQ SCH (08:28)
[2022-10-16] MEDS: METOPROLOL SUCCINATE 25 MG TAB.SR.24H PO SCH (08:28)
[2022-10-16] MEDS: DOCUSATE SODIUM 100 MG CAP PO SCH ×2 (08:28→21:45)
[2022-10-16] MEDS: THIAMINE HCL 100 MG TABLET PO SCH (08:29)
[2022-10-16] MEDS: FUROSEMIDE 20 MG TABLET PO SCH ×2 (08:29→21:45)
[2022-10-16] MEDS: ASPIRIN 81 MG EC TAB PO SCH (08:29)
[2022-10-16] MEDS: PANTOPRAZOLE 40 MG/VIAL IVP SCH ×2 (08:30→21:45)
[2022-10-16] MEDS: POLYETHYLENE GLYCOL 3350 17 GM POWD.PACK PO SCH (08:30)
[2022-10-16] MEDS: MULTIVITS,STRESS FORMULA/ZINC 1 TABLET PO SCH (08:30)
[2022-10-16] MEDS: CLOPIDOGREL 75MG TAB PO SCH (09:00)
[2022-10-16] MEDS: ATORVASTATIN 40 MG TABLET PO SCH (21:45)
[2022-10-17] VITALS (9 sets, daily range): BP systolic 107–129; BP diastolic 68–85; PULSE 91–95; RESP 18–20; O2SAT 96
[2022-10-17] MEDS: METOCLOPRAMIDE 10 MG/2 ML VIAL IVP SCH ×2 (06:04→14:51)
[2022-10-17] MEDS: INSULIN HUMULIN R 100 UNIT/ML 3ML SQ SCH ×3 (06:12→16:30)
[2022-10-17] MEDS: IPRATROPIUM 0.5 MG/2.5 ML INH IH SCH ×2 (06:53→11:19)
[2022-10-17] MEDS: THIAMINE HCL 100 MG TABLET PO SCH (08:34)
[2022-10-17] MEDS: DOCUSATE SODIUM 100 MG CAP PO SCH (08:34)
[2022-10-17] MEDS: FUROSEMIDE 20 MG TABLET PO SCH (08:34)
[2022-10-17] MEDS: METOPROLOL SUCCINATE 25 MG TAB.SR.24H PO SCH (08:34)
[2022-10-17] MEDS: PANTOPRAZOLE 40 MG/VIAL IVP SCH (08:35)
[2022-10-17] MEDS: ASPIRIN 81 MG EC TAB PO SCH (08:35)
[2022-10-17] MEDS: POLYETHYLENE GLYCOL 3350 17 GM POWD.PACK PO SCH (08:35)
[2022-10-17] MEDS: CLOPIDOGREL 75MG TAB PO SCH (08:35)
[2022-10-17] MEDS: ENOXAPARIN SODIUM 30 MG/0.3 ML SQ SCH (08:36)
[2022-10-17] MEDS: MULTIVITS,STRESS FORMULA/ZINC 1 TABLET PO SCH (08:36)
[2022-10-17] MEDS: CEFAZOLIN SODIUM 2 GM VIAL IVPB SCH (11:00)
== END 2022-10-17 18:25 | DRG 233 ==
LOC: EDH 21:54 → EDHIP 23:16 → 2BH 10-04 01:00 → 4CH 10-05 10:30 → 2CV 10-12 12:17 → 2BH 10-13 17:49 → 2DH 10-14 12:00
PROVIDERS: ADMIT Internal Medicine Infectious Disease; ATTEND Internal Medicine Infectious Disease
PROC: 3E07317 Introduction of Other Thrombolytic into Coronary Artery, Percutaneous Approach (ICD-10-PCS; 2022-10-03)
PROC: 0W3P8ZZ Control Bleeding in Gastrointestinal Tract, Via Natural or Artificial Opening Endoscopic (ICD-10-PCS; 2022-10-04)
PROC: 0DJ08ZZ Inspection of Upper Intestinal Tract, Via Natural or Artificial Opening Endoscopic (ICD-10-PCS; 2022-10-05)
PROC: 0DJD8ZZ Inspection of Lower Intestinal Tract, Via Natural or Artificial Opening Endoscopic (ICD-10-PCS; 2022-10-05)
PROC: 4A023N7 Measurement of Cardiac Sampling and Pressure, Left Heart, Percutaneous Approach (ICD-10-PCS; 2022-10-07)
PROC: B2111ZZ Fluoroscopy of Multiple Coronary Arteries using Low Osmolar Contrast (ICD-10-PCS; 2022-10-07)
PROC: 0PH000Z Insertion of Rigid Plate Internal Fixation Device into Sternum, Open Approach (ICD-10-PCS; 2022-10-12)
PROC: 02100Z9 Bypass Coronary Artery, One Artery from Left Internal Mammary, Open Approach (ICD-10-PCS; principal; 2022-10-12 11:40)
PROC: 021109W Bypass Coronary Artery, Two Arteries from Aorta with Autologous Venous Tissue, Open Approach (ICD-10-PCS; 2022-10-12 11:40)
PROC: 06BQ4ZZ Excision of Left Saphenous Vein, Percutaneous Endoscopic Approach (ICD-10-PCS; 2022-10-12 11:40)
DX: I25.119 Atherosclerotic heart disease of native coronary artery with unspecified angina pectoris (principal); I21.19 ST elevation (STEMI) myocardial infarction involving other coronary artery of inferior wall; J95.1 Acute pulmonary insufficiency following thoracic surgery; C18.9 Malignant neoplasm of colon, unspecified; N17.9 Acute kidney failure, unspecified; K56.7 Ileus, unspecified; K94.01 Colostomy hemorrhage; Z20.822 Contact with and (suspected) exposure to COVID-19; I10 Essential (primary) hypertension; J44.9 Chronic obstructive pulmonary disease, unspecified; D64.9 Anemia, unspecified; E11.9 Type 2 diabetes mellitus without complications; E78.00 Pure hypercholesterolemia, unspecified; I42.9 Cardiomyopathy, unspecified; E87.6 Hypokalemia; I25.2 Old myocardial infarction; Z79.899 Other long term (current) drug therapy; Z85.038 Personal history of other malignant neoplasm of large intestine; Z87.891 Personal history of nicotine dependence; Z90.49 Acquired absence of other specified parts of digestive tract; Z92.21 Personal history of antineoplastic chemotherapy; Z92.3 Personal history of irradiation
CPT/HCPCS: 36415; 36600; 43235; 44388; 71045; 74018; 80048; 80053; 80061; 81003; 82330; 82435; 82550; 82803; 82947; 82948; 83036; 83605; 83735; 83874; 83880; 84100; 84132; 84295; 84484; 85014; 85018; 85025; 85027; 85347; 85610; 85730; 86850; 86900; 86901; 86923; 87635; 87641; 93005; 93306; 93312; 93318; 93454; 93880; 94002; 94010; 94150; 94640; 94664; 97039; 99156; 99157; A4606; A7048; C1769; C9113; G0378; J0171; J0282; J0610; J0690; J1644; J1650; J1815; J2001; J2250; J2440; J2704; J2720; J2765; J2997; J3010; J3411; J3475; J3480; J3490; J7030; J7040; J7050; J7120; Q9967; A4215; A4216; A4222; A4223; A4315; A4452; A4510; A4600; A4620; A4649; A4657; A6204; A6219; A7002; C1713; C1729; C1776; C1894; Q9965